=== PATIENT | female | born 1955 | race Caucasian/White ===

== ENCOUNTER → 2019-05-04 | Day surgery (SDC) | payer OTHER ==
[~2019-05-04] MED LIST: HYOSCYAMINE 0.125 MG TAB ONE; NEXIUM40 MG PO; NYQUIL PO; PROPOFOL IV EMULSION 10 MG/ML 50 ML VIAL ONE; SYNTHROID125 MCG PO; SYNTHROID200 MCG PO
--- OUTSIDE RECORDS SUMMARY | 2019-05-04 07:55 | XMS REPORT | Summary of Care ---
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); Prediabetes; Dyslipidemia; Goiter 01/27/2019 Office Visit [facility] [address] [place] [phone] Allergies Comments Active Allergy Reactions Severity Noted Date Iodine Hives 10/27/2013 Nitrofurantoin Hives 10/27/2013 Monohyd/M-Cryst "whelps and hives" Iodine And Iodide Other - See 10/27/2013 Containing Products comments Sulfa (Sulfonamide Hives 10/27/2013 Antibiotics) documented as of this encounter (statuses as of 01/27/2019) Medications End Date Status Medication Sig Dispensed Refills Start Date Active esomeprazole (NEXIUM) 40 Take 20 mg by 0 mg capsuleIndications: mouth daily. OTC Indications: OTC Active SACCHAROMYCES BOULARDII Take 1 tablet 0 (PROBIOTIC, S.BOULARDII, by mouth ORAL) daily. Active SYNTHROID 125 mcg tablet TAKE 1 TABLET 90 tablet 1 BY MOUTH 9 EVERY DAY IN THE EVENING Active meloxicam 7.5 mg tablet TAKE 1 TABLET 0 BY MOUTH 9 TWICE A DAY FOR INFLAMMATION Active HYDROcodone-acetaminophen TAKE 1 TABLET 0 5-325 mg tablet BY MOUTH 9 EVERY 6 HOURS NEEDED*INS ONLY ALLOW Active ezetimibe (ZETIA) 10 mg Take 1 tablet 30 tablet 4 tabletIndications: by mouth 9 Dyslipidemia daily. 01/27/2019 Discontinued aspirin 81 mg EC Take 1 tablet 90 tablet 1 tabletIndications: by mouth 7 Dyslipidemia daily. 01/27/2019 Discontinued VITAMIN D3 1,000 unit TAKE ONE 90 capsule 1 capsuleIndications: CAPSULE BY 8 Vitamin D insufficiency MOUTH EVERY DAY 01/27/2019 Discontinued pravastatin 20 mg tablet Take 1 tablet 90 tablet 1 by mouth at 8 bedtime. 01/27/2019 Discontinued methylPREDNISolone Take by 21 Each 0 (MEDROL, [place]WR[place],) 4 mg mouth 9 tabletsIndications: Cough SEE-INSTRUCTI ONS. follow package directions 01/27/2019 Discontinued LORazepam (ATIVAN) 0.5 mg Take 1 tablet 8 tablet 0 tabletIndications: by mouth 2 9 Intractable vomiting with (two) times nausea, unspecified daily as vomiting type, Anxiety needed for Anxiety. documented as of this encounter (statuses as of 01/27/2019) Active Problems Problem Noted Date Elevated blood pressure (not hypertension) 12/27/2015 Prediabetes 07/23/2014 Hypertriglyceridemia 07/23/2014 HLD (hyperlipidemia) 07/23/2014 Vitamin D deficiency 07/23/2014 Obesity 07/23/2014 Smoking addiction 07/23/2014 Hypothyroidism 04/02/2014 Metabolic syndrome X 04/02/2014 Thyroid disease 12/22/2013 documented as of this encounter (statuses as of 01/27/2019) Resolved Problems Problem Noted Date Resolved Date Essential hypertension 12/27/2015 12/27/2015 documented as of this encounter (statuses as of 01/27/2019) Social History Date Tobacco Use Types Packs/Day Years Used Quit: 08/11/2015 Former Smoker Cigarettes 1.5 40 Smokeless Tobacco: Never Used Drinks/Week oz/Week Comments Alcohol Use 0 Standard drinks or equivalent 0.0 No Sex Assigned at Date Recorded Not on file Industry Job Start Date Occupation Not on file Not on file Not on file Travel End Travel History Travel Start No recent travel history available. documented as of this encounter Last Filed Vital Signs Reading Time Taken Comments Vital Sign 128/79 01/27/2019 11:10 AM CDT Blood Pressure 94 01/27/2019 11:01 AM CDT Pulse 36.9 C (98.4 F) 01/27/2019 11:01 AM CDT Temperature 20 01/27/2019 11:01 AM CDT Respiratory Rate 98% 01/27/2019 11:01 AM CDT Oxygen Saturation - - Inhaled Oxygen Concentration 76.4 kg (168 lb 6.4 oz) 01/27/2019 11:01 AM CDT Weight 162.6 cm (5' 4") 01/27/2019 11:01 AM CDT Height 28.91 01/27/2019 11:01 AM CDT Body Mass Index documented in this encounter Progress Notes * Florina Enrique MA - 01/27/2019 11:00 AM CDT Cecy Maldonado is a 63 year old female Chief Complaint Patient presents with Follow-up prediabetes Thyroid Problem * Lynette Jarrett MD - 01/27/2019 11:00 AM CDT CC: Hypothyroidism, Pre-DM, DL HPI Patient is a 62 year old /White female here for Hypothyroidism, autoimm une, treated with Levothyroxine. Irasema's Hypothyroidism On LT4 at 125 mcg daily, takes pill 1 hour before breakfast No palpitations, tremors, fatigue, sweating No constipation/diarrhea No heat or cold intolerance No myalgias + dry skin Had enlarged thyroid with possible nodules on exam in the past, states she has h ad thyroid USG > 20 years ago. Patient declined US in past Denies hoarseness, pain or dysphagia. No FH of thyroid cancer + FH of hypothyroidism in mother, father, and brother Dyslipidemia: Not on statin, patient refused statin and zetia in past She tried once a statin and it caused her leg cramps REVIEW OF SYSTEMS Constitutional: No fever Eyes: No visual changes or eye pain. Ears, nose , throat, mouth: no ear pain, no nasal congestion, no sore throat, no oral lesions GI: No constipation or abdominal pain Neck: No neck swelling, dysphagia or odynophagia. Cardiovascular: No chest pain or palpitations. Respiratory: No SOB or wheezing. Skin: No rash or significant wounds. Neuro: No LE numbness or jimmy-oral numbness Endocrine: No polyuria or polydipsia. No symptoms of hyper/hypothyroidism esomeprazole (NEXIUM) 40 mg capsule Patient -- -- Doctor Unassigned, No N shyann Take 20 mg by mouth daily. Indications: OTC HYDROcodone-acetaminophen 5-325 mg tablet 12/29/18 -- Doctor Unassigned , [place] TAKE 1 TABLET BY MOUTH EVERY 6 HOURS NEEDED*INS ONLY ALLOW / meloxicam 7.5 mg tablet 12/15/18 -- Doctor Unassigned, [place] TAKE 1 TABLET BY MOUTH TWICE A DAY FOR INFLAMMATION SACCHAROMYCES BOULARDII (PROBIOTIC, S.BOULARDII, ORAL) -- -- Doctor Kay ssigned, [place] Take 1 tablet by mouth daily. SYNTHROID 125 mcg tablet 07/14/18 Medical History Past Medical History Date Comments Acid reflux [K21.9] Dyslipidemia [E78.5] Hypothyroidism [E03.9] Ptosis, right eyelid [H02.401] Medical History - Pertinent Negatives None Surgical History Past Surgical History Laterality Date Comments HYSTERECTOMY [[id number]] OPEN CARPAL TUNNEL RELEASE [[id number]] CHOLECYSTECTOMY [[id number]] Social History Category History Smoking Status Former Smoker; Quit date: 08/11/2015; 1.5 packs/day for 40 years ( 60.00 pk-yrs); Types: Cigarettes Smokeless Tobacco Status Never Used Alcohol Use No Drug Use No Sexually Active Not Asked ADL Not Asked Social Documentation None Family History Relation Status Problems (Age of Onset) - (Comment) Brother Thyroid Father Thyroid Maternal Grandmother Thyroid Mother Physical Exam Vitals: 01/27/19 1101 01/27/19 1110 BP: 136/77 128/79 BP Location: Left arm Patient Position: Sitting BP CUFF SIZE: Adult Medium Pulse: 94 Resp: 20 Temp: 36.9 C (98.4 F) TempSrc: Oral SpO2: 98% Weight: 168 lb 6.4 oz (76.4 kg) Height: 5' 4" (1.626 m) Estimated body mass index is 28.91 kg/m as calculated from the following: Height as of this encounter: 5' 4" (1.626 m). Weight as of this encounter: 168 lb 6.4 oz (76.4 kg). Constitutional : Oriented to person, place and time. Well nourished Eyes: no icterus, no pallor, no exophthalmus ENT: normal oral cavity, dentition normal Thyroid : no goiter, thyroid fullness on the right with possible palpable thyro id nodules, no palpable lymph nodes Heart : RRR, no murmurs Lungs: clear Abdomen : soft, nontender Integumentary : warm , no rash, no acanthosis nigricans Neurology : no postural tremors, intact pinprick and light touch sensation Psychiatric : pleasant patient, mood appropriate Diabetic foot exam : + pulses, no LLE, +2 ankle reflexes, no ulcers, no tinea p selena, ++ dry skin Labs: Results for CECY MALDONADO ( ) as of 01/26/2019 23:59 Ref. Range 12/22/2018 22:10 WBC x10^3 Latest Ref Range: 4.30 - 11.10 10*3/L 11.48 (H) RBC x10^6 Latest Ref Range: 3.93 - 5.25 10*6/L 3.83 (L) HGB Latest Ref Range: 11.6 - 15.0 g/dL 11.4 (L) HCT Latest Ref Range: 35.7 - 45.2 % 35.3 (L) MCV Latest Ref Range: 80.6 - 95.5 fL 92.2 MCH Latest Ref Range: 25.9 - 32.8 pg 29.8 MCHC Latest Ref Range: 31.6 - 35.1 g/dL 32.3 RDW-SD Latest Ref Range: 39.0 - 49.9 fL 43.8 RDW-CV Latest Ref Range: 12.0 - 15.5 % 13.2 PLT x10^3 Latest Ref Range: 166 - 358 10*3/L 405 (H) MPV Latest Ref Range: 9.5 - 12.9 fL 11.5 NRBC /100 WBC Latest Ref Range: 0.0 - 10.0 /100 WBCs 0.0 NRBC x10^3 Latest Units: 10*3/L <0.01 GRAN MAT (NEUT) % Latest Units: % 60.1 IMM GRAN % Latest Units: % 0.30 LYMPH% Latest Units: % 32.4 MONO % Latest Units: % 5.5 EOS % Latest Units: % 1.3 BASO % Latest Units: % 0.4 GRAN MAT x10^3(ANC) Latest Ref Range: 1.88 - 7.09 10*3/uL 6.89 IMM GRAN x10^3 Latest Ref Range: 0.00 - 0.06 10*3/uL 0.04 LYMPH x10^3 Latest Ref Range: 1.32 - 3.29 10*3/uL 3.72 (H) MONO x10^3 Latest Ref Range: 0.33 - 0.92 10*3/uL 0.63 EOS x10^3 Latest Ref Range: 0.03 - 0.39 10*3/uL 0.15 BASO x10^3 Latest Ref Range: 0.01 - 0.07 10*3/uL 0.05 NA Latest Ref Range: 135 - 145 mmol/L 142 K Latest Ref Range: 3.5 - 5.0 mmol/L 4.2 CL Latest Ref Range: 98 - 108 mmol/L 107 CO2 TOTAL Latest Ref Range: 23 - 31 mmol/L 23 AGAP Latest Ref Range: 2 - 16 12 BUN Latest Ref Range: 7 - 23 mg/dL 15 GLUCOSE Latest Ref Range: 70 - 110 mg/dL 105 CREATININE Latest Ref Range: 0.50 - 1.04 mg/dL 0.64 eGFR CALCULATION (non ) Latest Units: mL/min/1.73m2 94.0 eGFR CALCULATION () Latest Units: mL/min/1.73m2 114.0 TOTAL BILI Latest Ref Range: 0.1 - 1.1 mg/dL 0.6 BILI UNCON Latest Ref Range: 0.1 - 1.1 mg/dL 0.4 BILI CONJ Latest Ref Range: 0.0 - 0.3 mg/dL 0.0 CALCIUM Latest Ref Range: 8.6 - 10.6 mg/dL 9.8 T PROTEIN Latest Ref Range: 6.3 - 8.2 g/dL 7.2 ALBUMIN Latest Ref Range: 3.5 - 5.0 g/dL 4.0 TROPONIN I Latest Ref Range: <=0.034 ng/mL 0.002 LIPASE Latest Ref Range: 0 - 220 U/L 65 ALK PHOS Latest Ref Range: 34 - 122 U/L 107 ALT(SGPT) Latest Ref Range: 9 - 51 U/L 37 AST(SGOT) Latest Ref Range: 13 - 40 U/L 30 Results for CECY MALDONADO ( ) as of 01/26/2019 23:59 Ref. Range 12/30/2017 09:44 CHOL Latest Ref Range: 120 - 200 mg/dL 249 (H) TRIG Latest Ref Range: 30 - 170 mg/dL 292 (H) HDL CHOL Latest Ref Range: >50 mg/dL 50 (L) HDLC RATIO Latest Ref Range: <=4.5 5.0 (H) LDL CHOL Latest Ref Range: <=160 mg/dL 141 VLDL Latest Ref Range: 5 - 60 mg/dL 58 Results for CECY AMLDONADO ( ) as of 01/26/2019 23:59 Ref. Range 06/13/2015 15:25 12/25/2015 09:00 03/04/2017 14:36 03/05/2017 09:52 2017 09:44 12/05/2018 13:58 HGB A1C Latest Ref Range: 4.0 - 6.0 % NGSP 5.6 5.6 5.9 5.9 Results for CECY MALDONADO ( ) as of 01/26/2019 23:59 Ref. Range 06/13/2015 15:25 03/04/2017 14:36 VIT D 25OH Latest Ref Range: 25 - 80 ng/mL 28 33 Results for CECY MALDONADO ( ) as of 01/27/2019 11:59 Ref. Range 06/13/2015 15:25 12/25/2015 09:00 03/04/2017 14:36 12/30/2017 09:44 TSH Latest Ref Range: 0.45 - 4.70 mIU/L 0.52 1.89 0.80 1.96 Results for CECY MALDONADO ( ) as of 01/27/2019 11:59 Ref. Range 12/19/2013 09:35 06/13/2015 15:25 12/25/2015 09:00 03/04/2017 14:36 FREE T4 Latest Ref Range: 0.78 - 2.20 ng/dL: 2.16 1.75 1.05 1.46 A/P : 1. 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 Last TFTs in 2018 were within normal limits - Keep same for now - Repeat TSH and FT4 today - Will adjust dose based on levels 2. Prediabetes : controlled on TLC, Hba1c is < 5.7 % for the past 3 years - Keep same 3. Dyslipidemia : refusing statins( had hx of muscle cramps on it in the past). - Repeat lipid profile today - Start Zetia 10 mg daily 4. Goiter : prominent right thyroid lobe, possible nodules on exam. 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 Expected: 01/27/2019, Expires: 03/25/2019 LIPID PANEL (63555)(TOTAL LAB Routine Dyslipidemia CHOLESTEROL, TRIGLYCERIDES, HDL) Health Maintenance Due Date Last Done Comments HEPATITIS C (HCV) SCREEN 1956 DTaP,Tdap,and Td Vaccines 12/14/1975 (1 - Tdap) PAP SMEAR 1977 MAMMOGRAM 1996 COLONOSCOPY 2006 Zoster Recombinant 2006 Vaccine (SHINGRIX) (1 of 2) LUNG CANCER SCREEN: 12/14/2011 Recommended for age 55-80 with 30 + pack year history INFLUENZA VACCINE (#1) 2019 PNEUMOCOCCAL 0-64 YEARS Aged Out No longer eligible based COMBINED SERIES on patient's age to complete this topic documented as of this encounter Procedures Comments Procedure Name Priority Date/Time Associated Diagnosis POCT HEMOGLOBIN A1C TEST Routine 01/27/2019 documented in this encounter Results * POCT HEMOGLOBIN A1C TEST (01/27/2019) POCT HBA1C 5.6 4 - 6 % Specimen Blood - CAPILLARY documented in this encounter Visit Diagnoses Diagnosis 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
--- OUTSIDE RECORDS SUMMARY | 2019-05-04 07:55 | XMS REPORT | Summary of Care ---
Author Author [facility] - Health Organization [facility] - Health Address Unknown Phone Unavailable Care Team Providers Care Operations Support Specialist Name Role Phone Pcp, Patient Does Not Have A PCP Reason for Visit * Reason Comments Abdominal Pain Nausea Vomiting Diarrhea Encounter Details Care Team Description Date Type Department Unknown, Attending Nurse, Anup Urgent Abdominal pain with vomiting (Primary Dx) 12/22/2018 Nurse Visit [facility] [address] [place] [phone] Allergies Comments Active Allergy Reactions Severity Noted Date Iodine Hives 10/27/2013 Nitrofurantoin Hives 10/27/2013 Monohyd/M-Cryst "whelps and hives" Iodine And Iodide Other - See 10/27/2013 Containing Products comments Sulfa (Sulfonamide Hives 10/27/2013 Antibiotics) documented as of this encounter (statuses as of 12/22/2018) Medications End Date Status Medication Sig Dispensed Refills Start Date Active esomeprazole (NEXIUM) 40 Take 20 mg by 0 mg capsuleIndications: mouth daily. OTC Indications: OTC Active SACCHAROMYCES BOULARDII Take 1 tablet 0 (PROBIOTIC, S.BOULARDII, by mouth ORAL) daily. Active aspirin 81 mg EC Take 1 tablet 90 tablet 1 tabletIndications: by mouth 7 Dyslipidemia daily. Active VITAMIN D3 1,000 unit TAKE ONE 90 capsule 1 capsuleIndications: CAPSULE BY 8 Vitamin D insufficiency MOUTH EVERY DAY Active pravastatin 20 mg tablet Take 1 tablet 90 tablet 1 by mouth at 8 bedtime. Active SYNTHROID 125 mcg tablet TAKE 1 TABLET 90 tablet 1 BY MOUTH 9 EVERY DAY IN THE EVENING Active methylPREDNISolone Take by 21 Each 0 (MEDROL, LAWRENCE,) 4 mg mouth 9 tabletsIndications: Cough SEE-INSTRUCTI ONS. follow package directions documented as of this encounter (statuses as of 12/22/2018) Active Problems Problem Noted Date Elevated blood pressure (not hypertension) 12/27/2015 Prediabetes 07/23/2014 Hypertriglyceridemia 07/23/2014 HLD (hyperlipidemia) 07/23/2014 Vitamin D deficiency 07/23/2014 Obesity 07/23/2014 Smoking addiction 07/23/2014 Hypothyroidism 04/02/2014 Metabolic syndrome X 04/02/2014 Thyroid disease 12/22/2013 documented as of this encounter (statuses as of 12/22/2018) Resolved Problems Problem Noted Date Resolved Date Essential hypertension 12/27/2015 12/27/2015 documented as of this encounter (statuses as of 12/22/2018) Social History Date Tobacco Use Types Packs/Day [...] Signs Reading Time Taken Comments Vital Sign 131/84 12/22/2018 7:48 PM CDT Blood Pressure 107 12/22/2018 7:48 PM CDT Pulse 36.6 C (97.9 F) 12/22/2018 7:48 PM CDT Temperature 22 12/22/2018 7:48 PM CDT Respiratory Rate 98% 12/22/2018 7:48 PM CDT Oxygen Saturation - - Inhaled Oxygen Concentration 75.7 kg (166 lb 12.8 oz) 12/22/2018 7:48 PM CDT Weight 162.6 cm (5' 4") 12/22/2018 7:48 PM CDT Height 28.63 12/22/2018 7:48 PM CDT Body Mass Index documented in this encounter Progress Notes * Angel Lozada RN - 12/22/2018 7:45 PM CDT complaining of abdominal pain. Patient reports that she has been having LUQ/LLQ pain for the past 3-4 days with N/V/D. She said that it is getting unbearable an d said that she was able to get herself some nausea medication that would make h er fall asleep but when she woke up she would start vomiting again. She states t hat she has been unable to take her medications. Patient reports history of hypo thyroidism, Prediabetes, HLD, and elevated BP. Patient AAOx4, ambulatory with a walker, eupneic, skin pink/warm/dry, appears ac utely ill and in distress. Patient encouraged to seek emergency medical treatment at local emergency room f or abdominal pain and N/V/D. Case discussed with Elham Pritchard NP who agrees with t reatment plan recommendations. Patient verbalizes understanding and states she w ill be seen at [facility]. Patient states that her will drive her ther e in their own personal vehicle. Patient leaves urgent care @1945 en route to [place] AAOx4, ambulatory wit h a walker, in acute distress. documented in this encounter Plan of Treatment Health Maintenance Due Date Last Done Comments HEPATITIS C (HCV) SCREEN 1956 DTaP,Tdap,and Td Vaccines 12/14/1975 (1 - Tdap) PAP SMEAR 1977 MAMMOGRAM 1996 COLONOSCOPY 2006 Zoster Recombinant 2006 Vaccine (SHINGRIX) (1 of 2) LUNG CANCER SCREEN: 12/14/2011 Recommended for age 55-80 with 30 + pack year history INFLUENZA VACCINE 01/29/2019 PNEUMOCOCCAL 0-64 YEARS Aged Out No longer eligible based COMBINED SERIES on patient's age to complete this topic documented as of this encounter Results Not on filedocumented in this encounter Visit Diagnoses Diagnosis Abdominal pain with vomiting - Primary documented in this encounter Insurance Type Payer Benefit Subscriber ID Effective Phone Address Plan / Dates Group O [facility] [id number] 2018-P resent documented as of this encounter
--- OUTSIDE RECORDS SUMMARY | 2019-05-04 07:55 | XMS REPORT | Summary of Care ---
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); Prediabetes; Dyslipidemia; Goiter 01/27/2019 Office Visit [facility] [address] [place] [phone] Allergies Comments Active Allergy Reactions Severity Noted [...] mg tablet 12/29/18 -- Doctor Unassigned , [place] TAKE 1 TABLET BY MOUTH EVERY 6 HOURS NEEDED*INS ONLY ALLOW / meloxicam 7.5 mg tablet 12/15/18 -- Doctor Unassigned, [place] TAKE 1 TABLET BY MOUTH TWICE A DAY FOR INFLAMMATION SACCHAROMYCES BOULARDII (PROBIOTIC, S.BOULARDII, ORAL) -- -- Doctor Kay ssigned, [place] Take 1 tablet by mouth daily. SYNTHROID 125 mcg tablet 07/14/18 Medical History Past Medical History Date Comments Acid reflux [K21.9] Dyslipidemia [E78.5] Hypothyroidism [E03.9] Ptosis, right eyelid [H02.401] Medical History - Pertinent Negatives None Surgical History Past Surgical History Laterality Date Comments HYSTERECTOMY [[id number]] OPEN CARPAL TUNNEL RELEASE [[id number]] CHOLECYSTECTOMY [[id number]] Social History Category History Smoking Status Former [...] - 60 mg/dL 58 Results for CECY MALDONADO ( ) as [...] thyroiditis Expected: 01/27/2019, Expires: 03/25/2019 LIPID PANEL (52786)(TOTAL LAB Routine Dyslipidemia CHOLESTEROL, TRIGLYCERIDES, HDL) Health [...] Address Plan / Dates Group O AENA [facility] [id number] 2018-P neto documented as of this encounter
--- OUTSIDE RECORDS SUMMARY | 2019-05-04 07:55 | XMS REPORT | Summary of Care ---
Author Author [facility] - Health Organization [facility] - Health Address Unknown Phone Unavailable Care Team Providers Care Spinner Cap Frame Name Role Phone Pcp, Patient Does Not Have A PCP Reason for Referral * Radiology Services (STAT) Referred By Contact Referred To Contact Status Reason Specialty Diagnoses / Procedures Finn Lang MD [address] [address] New Request Diagnostic Diagnoses Radiology Intractable vomiting with nausea, unspecified vomiting type P rocedures XR ABDOMEN ACUTE SERIES * Radiology Services (STAT) Referred By Contact Referred To Contact Status Reason Specialty Diagnoses / Procedures Finn Lang MD [address] [address] New Request Diagnostic Diagnoses Radiology Intractable vomiting with nausea, unspecified vomiting type P rocedures XR ABDOMEN ACUTE SERIES Reason for Visit * Reason Comments Vomiting * Auth/Cert Referred By Contact Referred To Contact Status Reason Specialty Diagnoses / Procedures [facility] Emergency Dept [address] [place] [id number] Emergency Medicine Encounter Details Care Team Description Date Type Department Finn Lang MD [address] [address] Intractable vomiting with nausea, unspecified vomiting type (Primary Dx); Anxiety 12/22/2018 Emergency [facility]-Emergency Department - [address] [place] [address] 12/23/2018 [place] [address] Allergies Comments Active Allergy Reactions Severity Noted Date Iodine Hives 10/27/2013 Nitrofurantoin Hives 10/27/2013 Monohyd/M-Cryst "whelps and hives" Iodine And Iodide Other - See 10/27/2013 Containing Products comments Sulfa (Sulfonamide Hives 10/27/2013 Antibiotics) documented as of this encounter (statuses as of 12/23/2018) Medications End Date Status Medication Sig Dispensed [...] tabletsIndications: Cough SEE-INSTRUCTI ONS. follow package directions Active LORazepam (ATIVAN) 0.5 mg Take 1 tablet 8 tablet 0 tabletIndications: by mouth 2 9 Intractable vomiting with (two) times nausea, unspecified daily as vomiting type, Anxiety needed for Anxiety. documented as of this encounter (statuses as of 12/23/2018) Active Problems Problem Noted Date Elevated blood pressure (not hypertension) 12/27/2015 Prediabetes 07/23/2014 Hypertriglyceridemia 07/23/2014 HLD (hyperlipidemia) 07/23/2014 Vitamin D deficiency 07/23/2014 Obesity 07/23/2014 Smoking addiction 07/23/2014 Hypothyroidism 04/02/2014 Metabolic syndrome X 04/02/2014 Thyroid disease 12/22/2013 documented as of this encounter (statuses as of 12/23/2018) Resolved Problems Problem Noted Date Resolved Date Essential hypertension 12/27/2015 12/27/2015 documented as of this encounter (statuses as of 12/23/2018) Social History Date Tobacco Use Types Packs/Day [...] Signs Reading Time Taken Comments Vital Sign 110/58 12/23/2018 12:17 AM CDT Blood Pressure 92 12/23/2018 12:17 AM CDT Pulse 37 C (98.6 F) 12/23/2018 12:17 AM CDT Temperature 18 12/23/2018 12:17 AM CDT Respiratory Rate 97% 12/23/2018 12:17 AM CDT Oxygen Saturation - - Inhaled Oxygen Concentration 78 kg (172 lb) 12/22/2018 8:07 PM CDT Weight - - Height 29.52 12/22/2018 7:48 PM CDT Body Mass Index documented in this encounter Discharge Instructions * Instructions* Finn Lang MD - 12/23/2018 DIAGNOSIS Diagnoses that have been ruled out: None Diagnoses that are still under consideration: None Final diagnoses: Intractable vomiting with nausea, unspecified vomiting type NO LIFE-THREATENING FINDINGS ON TODAY'S EXAM. PROCEDURES IN THE ER TODAY: Orders Placed This Encounter Procedures XR ABDOMEN ACUTE SERIES CBC WITH DIFF BASIC METABOLIC PANEL (NA, K, CL, CO2, GLUCOSE, BUN, CREATININE, CA) HEPATIC FUNCTION PANEL (67622) (ALB,T.PRO,BILI T,BU/BC,ALT,AST,ALK PHOS) LIPASE CBC WITH DIFFERENTIAL TROPONIN I MEDICATIONS ADMINISTERED IN THE ER TODAY: Orders Placed This Encounter Medications NaCl 0.9% (NS) bolus infusion 500 mL ondansetron (ZOFRAN (PF)) injection 4 mg diazePAM (VALIUM) tablet 5 mg YOUR PRESCRIPTIONS AND [id number] MEDICATION RECOMMENDATIONS: Ativan SPECIAL CARE INSTRUCTIONS: Follow up with PCP FOLLOW-UP RECOMMENDATIONS: RECOMMEND FOLLOW-UP WITH A PRIMARY CARE PROVIDER OR SPECIALIST IN 2-5 DAYS, ADAMA CIALLY IF NO IMPROVEMENT IN SYMPTOMS. TO FOLLOW-UP WITHIN THE [facility], TRY THESE OPTIONS (CLINIC APPOIN TMENTS AVAILABLE ON XTRG-MD-NADR BASIS): 1. SCHEDULE AN APPOINTMENT ONLINE AT [email or web address] 2. OR CALL THE [facility] AT OR 3. OR CALL YOUR [facility] PHYSICIAN'S OFFICE DIRECTLY IF YOU ARE ALREADY AN ESTABLISH ED [facility] PATIENT. OR, YOU MAY FOLLOW-UP WITH A PROVIDER OF YOUR CHOICE, SUCH : 1. A PHYSICIAN OF YOUR CHOICE 2. [facility], . LOCATIONS IN [facility] 3. [facility], [address] [place], [place]; [phone] RETURN TO ER FOR WORSENING OF SYMPTOMS. * Attachments The following attachments cannot be sent through Care Everywhere.* Vomiting (Adult) (Kiswahili) * Anxiety Reaction (Kiswahili) documented in this encounter Plan of Treatment [...] Comments Procedure Name Priority Date/Time Associated Diagnosis CBC WITH DIFFERENTIAL STAT 12/22/2018 Intractable vomiting with 10:10 PM CDT nausea, unspecified vomiting type CBC WITH DIFF STAT 12/22/2018 Intractable vomiting with 10:10 PM CDT nausea, unspecified vomiting type BASIC METABOLIC PANEL STAT 12/22/2018 Intractable vomiting with (NA, K, CL, CO2, GLUCOSE, 10:10 PM CDT nausea, unspecified BUN, CREATININE, CA) vomiting type HEPATIC FUNCTION PANEL STAT 12/22/2018 Intractable vomiting with (38963) (ALB,T.PRO,BILI 10:10 PM CDT nausea, unspecified T,BU/BC,ALT,AST,ALK PHOS) vomiting type TROPONIN I STAT 12/22/2018 Intractable vomiting with 10:10 PM CDT nausea, unspecified vomiting type LIPASE STAT 12/22/2018 Intractable vomiting with 10:10 PM CDT nausea, unspecified vomiting type XR ABDOMEN ACUTE SERIES STAT 12/22/2018 Intractable vomiting with 9:41 PM CDT nausea, unspecified vomiting type CONSENT/REFUSAL FOR Routine 12/22/2018 DIAGNOSIS AND TREATMENT 8:03 PM CDT documented in this encounter Results * TROPONIN I (12/22/2018 10:10 PM CDT) TROPONIN I 0.002 <=0.034 ng/mL [facility] Specimen Blood - VENOUS Narrative Performed At Equal or Less than 0.034 ng/ml---Normal [facility] Note: Cardiac troponin begins to rise 3-4 hours after the onset of ischemia. [facility] Repeat in 4-6 hours if the sample was drawn within 3-4 hours of the onset of the [place] symptom and found normal. Between 0.035 and 0.120 ng/mL--- Borderline. Questionable myocardial injury or necrosis Note: Serial measurement may be necessary to confirm or exclude the diagnosis of myocardial injury or necrosis; Clinical correlation (symptoms, EKGs, imaging studies, and others) required; Repeat in 4-6 hours if clinically indicated. Equal or Higher than 0.121 ng/mL---Abnormal. Myocardial Injury or Necrosis Likely Biotin has been reported to cause a negative bias, interpret results relative to patient's use of biotin. Performing Organization Address City/State/Zipcode Phone Number [facility] CLIA: [id number], [address] [place] [address] [facility] * CBC WITH DIFFERENTIAL (12/22/2018 10:10 PM CDT) WBC 11.48 (H) 4.30 - 11.10 [facility] 10*3/L [facility] RBC 3.83 (L) 3.93 - 5.25 10*6/L [facility] HGB 11.4 (L) 11.6 - 15.0 g/dL [facility] HCT 35.3 (L) 35.7 - 45.2 % [facility] MCV 92.2 80.6 - 95.5 fL [facility] MCH 29.8 25.9 - 32.8 pg [facility] MCHC 32.3 31.6 - 35.1 g/dL [facility] RDW-SD 43.8 39.0 - 49.9 fL [facility] RDW-CV 13.2 12.0 - 15.5 % [facility] PLT 405 (H) 166 - 358 10*3/L [facility] MPV 11.5 9.5 - 12.9 fL [facility] NRBC/100 WBC 0.0 0.0 - 10.0 /100 WBCs [facility] NRBC x10^3 <0.01 10*3/L [facility] GRAN MAT (NEUT) 60.1 % [facility] IMM GRAN % 0.30 % [facility] LYMPH % 32.4 % [facility] MONO % 5.5 % [facility] EOS % 1.3 % [facility] BASO % 0.4 % [facility] GRAN MAT 6.89 1.88 - 7.09 10*3/uL [facility] x10^3(ANC) [facility] IMM GRAN x10^3 0.04 0.00 - 0.06 10*3/uL [facility] LYMPH x10^3 3.72 (H) 1.32 - 3.29 10*3/uL [facility] MONO x10^3 0.63 0.33 - 0.92 10*3/uL [facility] EOS x10^3 0.15 0.03 - 0.39 10*3/uL [facility] BASO x10^3 0.05 0.01 - 0.07 10*3/uL [facility] Specimen Blood - VENOUS Performing Organization Address City/[facility]/Zipcode Phone Number [facility] CLIA: [id number], [address] [place] [id number] [facility] * LIPASE (12/22/2018 10:10 PM CDT) LIPASE 65 0 - 220 U/L [facility] Specimen Blood - VENOUS Performing Organization Address City/[facility] [email or web address] Phone Number [facility] CLIA: [id number], [address] [place] [address] [facility] * HEPATIC FUNCTION PANEL (02569) (ALB,T.PRO,BILI T,BU/BC,ALT,AST,ALK PHOS) (12/22/2018 10:10 PM CDT) TOTAL BILI 0.6 0.1 - 1.1 mg/dL [facility] BILI UNCON 0.4 0.1 - 1.1 mg/dL [facility] BILI CONJ 0.0 0.0 - 0.3 mg/dL [facility] T PROTEIN 7.2 6.3 - 8.2 g/dL [facility] ALBUMIN 4.0 3.5 - 5.0 g/dL [facility] ALK PHOS 107 34 - 122 U/L [facility] ALT(SGPT) 37 9 - 51 U/L [facility] AST(SGOT) 30 13 - 40 U/L [facility] Specimen Blood - VENOUS Performing Organization Address City/[facility]/Zipcode Phone Number [facility] CLIA: [id number], [address] [place] [phone] [facility] * BASIC METABOLIC PANEL (NA, K, CL, CO2, GLUCOSE, BUN, CREATININE, CA) (12/22/2018 10:10 PM CDT) NA 142 135 - 145 mmol/L [facility] K 4.2 3.5 - 5.0 mmol/L [facility] CL 107 98 - 108 mmol/L [facility] CO2 TOTAL 23 23 - 31 mmol/L [facility] AGAP 12 2 - 16 [facility] BUN 15 7 - 23 mg/dL [facility] GLUCOSE 105 70 - 110 mg/dL [facility] CREATININE 0.64 0.50 - 1.04 mg/dL [facility] CALCIUM 9.8 8.6 - 10.6 mg/dL [facility] eGFR 94.0 mL/min/1.73m2 [facility] Calculation [facility] (Non-[facility] [place]) eGFR 114.0 mL/min/1.73m2 [facility] Calculation [facility] ([facility] [place]) Specimen Blood - VENOUS Narrative Performed At [facility] [place] [facility] [place] Fil[place] Rate (GFR) and Staging of Kidney Disease* [facility] + + + [facility] | GFR (mL/min/1.73 m2)| With Kidney Damage|Without Kidney Damage CAMPUS + + + + |>90|Stage one| Normal + + + + |60-89|Stage two| Decreased GFR + + + + |30-59|Stage three| Stage three + + + + |15-29|Stage four | Stage four + + + + |<15 (or dialysis)|Stage five | Stage five + + + + *Each stage assumes the associated GFR level has been in effect for at least three months.Stages 1 to 5, with or without kidney disease, indicate chronic kidney disease. Notes: Determination of stages one and two (with eGFR >59mL/min/1.73 m2) requires estimation of kidney damage for at least three months as defined by structural or functional abnormalities of the kidney, manifested by either: Pathological abnormalities or Markers of kidney damage (including abnormalities in the composition of the blood or urine or abnormalities in imaging tests). Performing Organization Address City/State/Zipcode Phone Number [facility] CLIA: [id number], [address] [place] [address] [facility] * XR ABDOMEN ACUTE SERIES (12/22/2018 9:41 PM CDT) Specimen Narrative Performed At XR ABDOMEN ACUTE SERIES PACS/VR/DOSE Comparison: None available History: abdominal pain Findings: The lungs are clear with no focal consolidation. No pleural effusion or pneumothorax is present. The heart is normal in size. The bowel gas pattern is nonobstructive. No evidence of free intra-abdominal air is present. Surgical bertin are noted in the right upper quadrant. Surgical screws are noted in the lumbar spine and the pelvis. No acute osseous abnormality. Changes of left total hip replacement are partially visualized. Charlotte Rosales MD., have reviewed this study and agree with the above report. Procedure Note [facility], Radiant Results Inft User - 12/22/2018 10:06 PM CDT XR ABDOMEN ACUTE SERIES Comparison: None available History: abdominal pain Findings: The lungs are clear with no focal consolidation. No pleural effusion or pneumothorax is present. The heart is normal in size. The bowel gas pattern is nonobstructive. No evidence of free intra-abdominal air is present. Surgical bertin are noted in the right upper quadrant. Surgical screws are noted in the lumbar spine and the pelvis. No acute osseous abnormality. Changes of left total hip replacement are partially visualized. Vince Rosales MD., have reviewed this study and agree with the above report. Performing Organization Address City/State/Zipcode Phone Number PACS/VR/DOSE documented in this encounter Visit Diagnoses Diagnosis Intractable vomiting with nausea, unspecified vomiting type - Primary Anxiety Anxiety state, unspecified documented in this encounter Administered Medications Action Date Dose Rate Site Medication Order MAR Action 12/22/2018 11:50 PM CDT 5 mg diazePAM (VALIUM) tablet 5 mg Given 5 mg, Oral, ONCE, 1 dose, 12/23/18 at 0030, CASSIUS 12/22/2018 10:10 PM CDT 500 mL 999 mL/hr NaCl 0.9% (NS) bolus infusion 500 mL New Bag at 999 mL/hr, 500 mL, IV Infusion, ONCE, 1 dose, Rea 12/22/18 at 2215, STAT 12/22/2018 10:10 PM CDT 4 mg ondansetron (ZOFRAN (PF)) injection 4 mg Given 4 mg, Slow IV Push, ONCE, 1 dose, Rea 12/22/18 at 2215, CASSIUS documented in this encounter Insurance Type Payer Benefit Subscriber ID Effective Phone Address Plan / Dates Group [id number] resent documented as of this encounter
--- OUTSIDE RECORDS SUMMARY | 2019-05-04 07:55 | XMS REPORT ---
Author Author [facility] Address Unknown Phone Unavailable Care Team Providers Care Records Section Supervisor Name Role Phone Unavailable Unavailable Payers Payer Name Policy Type Policy Number Effective Date Expiration Date Problems This patient has no known problems. Allergies, Adverse Reactions, Alerts Allergy Name Allergy Type Status Severity Reaction(s) Onset Date Inactive Date Treating Clinician Comments Iodinated Contrast- Oral and IV Dye DA Active [place] 2018-11-14 00:00:00 Sulfa (Sulfonamide Antibiotics) DA Active [place] 2018-11-14 00:00:00 codeine DA Active [place] 2018-11-14 00:00:00 nitrofurantoin DA Active [place] 2018-11-14 00:00:00 tramadol DA Active [place] 2018-11-14 00:00:00 Sulfa (Sulfonamide Antibiotics) DA Active [place] 2009-05-31 00:00:00 Iodinated Contrast- Oral and IV Dye DA Active U 2008-11-17 00:00:00 codeine DA Active U 2008-11-17 00:00:00 Medications This patient has no known medications. Results Test Description Test Time Test Comments Text Results Atomic Results Result Comments - XR PELVIS 1/2 VIEWS 2018-12-15 12:44:00 Patient Name: CECY SILVA Unit No: [id number] EXAMS: CPT CODE: [id number] XR PELVIS 1/2 VIEWS 05800 AP VIEW OF THE PELVIS. COMMENT: In progress total left hip arthroplasty. AP view the pelvis COMMENT: COMPARISON: No prior exams available. Completed total left hip arthroplasty. Prosthesis appears to be in good position. No evidence of periprosthetic fracture. at 1244 Reported and signed by: Kenan Morgan MD CC: Edie Simmons MD Technologist: Nehal Coronado,RT(R). Transcribed D/ (4992) JohanaG [facility] NAME: CECY SILVA [address] [place] [address] PHYS: Edie Landon MD : 1955 AGE: 63 SEX: F [place] [address] LOC: Y.508 A PHONE #: [phone] EXAM DATE: 12/14/2018 STATUS: ADM IN FAX #: [phone] RAD #: D/C DT PAGE 1 Signed Report Patient Name: CECY SILVABANNER Unit No: [id number] EXAMS: CPT CODE: [id number] XR PELVIS 1/2 VIEWS 33858 <Continued> Orig Print D/T: S: 12/15/2018 (9830) [facility] NAME: CECY SILVA [address] PHYS: Edie Landon MD : 1955 AGE: 63 SEX: F [place] [address] LOC: Y.508 A PHONE #: [phone] EXAM DATE: 12/14/2018 STATUS: ADM IN FAX #: [phone] RAD #: D/C DT PAGE 2 Signed Report - XR PELVIS 1/2 VIEWS 2018-12-15 12:44:00 Patient Name: CECY SILVABANNER Unit No: [id number] EXAMS: CPT CODE: [id number] XR PELVIS 1/2 VIEWS 95898 AP VIEW OF THE PELVIS. COMMENT: In progress total left hip arthroplasty. AP view the pelvis COMMENT: COMPARISON: No prior exams available. Completed total left hip arthroplasty. Prosthesis appears to be in good position. No evidence of periprosthetic fracture. at 1244 Reported and signed by: Kenan Morgan MD CC: Edie Simmons MD Technologist: Nehal Coronado,RT(R). Transcribed D/ (8968) LaiGVG [facility] NAME: CECY SILVA [address] [facility] PHYS: Edie Landon MD : 1955 AGE: 63 SEX: F [place], [place] [address] LOC: Y.508 A PHONE #: [phone] EXAM DATE: 12/14/2018 STATUS: ADM IN FAX #: [phone] RAD #: D/C DT PAGE 1 Signed Report Patient Name: CECY SILVA Unit No: [id number] EXAMS: CPT CODE: [id number] XR PELVIS 1/2 VIEWS 53213 <Continued> Orig Print D/T: S: 12/15/2018 (8387) [facility] NAME: CECY SILVA [address] [place] [address] PHYS: Edie Landon MD : 1955 AGE: 63 SEX: F [place], [place] [address] LOC: Y.508 A PHONE #: [phone] EXAM DATE: 12/14/2018 STATUS: ADM IN FAX #: [phone] RAD #: D/C DT PAGE 2 Signed Report BASIC METABOLIC PANEL 2018-12-15 06:19:00 SODIUM (test code=NA) 141 mmol/L 136-145 POTASSIUM (test code=K) 5.1 mmol/L 3.5-5.1 CHLORIDE (test code=CL) 104.0 mmol/L 98-107 CARBON DIOXIDE (test code=CO2) 24.2 mmol/L 21-32 GLUCOSE (test code=GLU) 175 mg/dL 70-110 BLOOD UREA NITROGEN (test code=BUN) 16 mg/dL 7-18 GLOMERULAR FILTRATION RATE (test code=GFR) 70.6 >60 Unit of measure: mL/min/1.73 [id number] Range:Healthy Adults >90 mL/min/1.73 m2 For Chronic Kidney Disease: Stage II Mild Decrease in GFR 60-90 Stage III Moderate Decrease in GFR 30-59 Stage IV Severe Decrease in GFR 15-29 Stage V Kidney Failure <15 CREATININE (test code=CREAT) 0.82 mg/dL 0.55-1.30 CALCIUM (test code=CA) 8.6 mg/dL 8.2-10.1 HGB [id number] 05:39:00* Test Item Value Reference Range Comments HEMOGLOBIN (test code=HGB) 11.5 g/dL 12-16 HEMATOCRIT (test code=HCT) 36.4 % 37-47 GLYCOSYLATED HEMOGLOBIN (HA1C)2018-11-14 22:19:00* Test Item Value Reference Range Comments GLYCOSYLATED HEMOGLOBIN (HA1C) (test code=GLYHGB) 5.6 % 4.8-5.9 Any condition that shortens erythocyte survival or decreasesmean erythrocyte age (e.g., recovery from acute blood loss,hemolytic anemia) will falsely lower HGBA1c resultsregardless of the method used. HGBA1c results from patientswith HbSS, HbCC, and HbSc must be interpreted with cautiongiven the pathological processes, including anemia,increased red cell turnover, transfusion requirements, thatadve rsely impact HGBA1c as a marker of long-term glycemiccontrol. Alternative forms of testing such as fructosamineshould be considered for these patients. GLYCOSYLATED HEMOGLOBIN (HA1C)2018-11-14 22:19:00* Test Item Value Reference Range Comments GLYCOSYLATED HEMOGLOBIN (HA1C) (test code=GLYHGB) 5.6 % 4.8-5.9 Any condition that shortens erythocyte survival or decreasesmean erythrocyte age (e.g., recovery from acute blood loss,hemolytic anemai) will falsely lower HGBA1c resultsregardless of the method used. HGBA1c results frompatients with HbSS, HbCC and HbSc must be interpreted withcaution given the pathological processes, including anemia,increased red cell turnover, transfusion requirements, thatadversely impact HGBA1c as a marker of long-term glycemiccontrol. Alternative forms of testing such as fructosamineshould be considered for these patients.Any condition that shortens erythocyte survival or decreasesmean erythrocyte age (e.g., recovery from acute blood loss,hemolytic anemia) will falsely lower HGBA1c resultsregardless of the method used. HGBA1c results from patientswith HbSS, HbCC, and HbSc must be interpreted with cautiongiven the pathological processes, including anemia,increased red cell turnover, transfusion requirements, thatadversely impact HGBA1c as a marker of long-term glycemiccontrol. Alternative forms of testing such as fructosamineshould be considered for these patients.DONE AT: [facility] [address], [place] [address] COMPREHENSIVE METABOLIC [id number] 17:08:00* Test Item Value Reference Range Comments SODIUM (test code=NA) 144 mmol/L 136-145 POTASSIUM (test code=K) 4.4 mmol/L 3.5-5.1 CHLORIDE (test code=CL) 105.0 mmol/L 98-107 CARBON DIOXIDE (test code=CO2) 27.2 mmol/L 21-32 GLUCOSE (test code=GLU) 92 mg/dL 70-110 BLOOD UREA NITROGEN (test code=BUN) 13 mg/dL 7-18 GLOMERULAR FILTRATION RATE (test code=GFR) 75.1 >60 Unit of measure: mL/min/1.73 [id number] Range:Healthy Adults >90 mL/min/1.73 m2 For Chronic Kidney Disease: Stage II Mild Decrease in GFR 60-90 Stage III Moderate Decrease in GFR 30-59 Stage IV Severe Decrease in GFR 15-29 Stage V Kidney Failure <15 CREATININE (test code=CREAT) 0.78 mg/dL 0.55-1.30 TOTAL PROTEIN (test code=PROT) 7.4 g/dL 6.4-8.2 ALBUMIN (test code=ALB) 3.9 g/dL 3.4-5.0 GLOBULIN (test code=GLOB) 3.5 g/dL 2.2-4.2 ALBUMIN/GLOBULIN RATIO (test code=A/G) 1.1 0.7-2.0 CALCIUM (test code=CA) 9.3 mg/dL 8.2-10.1 BILIRUBIN TOTAL (test code=BILT) 0.36 mg/dL 0.2-1.00 SGOT/AST (test code=AST) 23.0 U/L 15-37 SGPT/ALT (test code=ALT) 31.0 U/L 12-78 Please note new normal range. ALKALINE PHOSPHATASE TOTAL (test code=ALKP) 150 U/L 46-116 PROTHROMBIN [id number] 16:54:00* Test Item Value Reference Range Comments PROTHROMBIN TIME PATIENT (test code=PTP) 11.6 secs 10.1-12.5 INTERNATIONAL NORMAL RATIO (test code=INR) 1.03 <2.0 RECOMMENDED THERAPEUTIC RANGE FOR ORAL ANTICOAGULANTTREATMENT: CONDITION INRProphylaxis of venous thrombosis in 2.0 - 3.0 high-risk medical or surgical patientsTreatment of venous thrombosis 2.0 - 3.0Prevention of embolism 2.0 - 3.0Prevention of recurrent embolism, or 3.0 - 4.5 patients with mechanical prosthetic intravascular valves IS PATIENT ON ANTICOAGULANTS ? NHas Lab been notified if Patient is on Heparin D rip? NOIf Yes, order CBC, OCCULT BLOOD, PT every other day NTHROMBOPLASTIN TIME [id number] 16:54:00* Test Item Value Reference Range Comments PTT ACTIVATED (test code=APTT) 28.6 secs 24.9-37.0 IS PATIENT ON ANTICOAGULANTS ? NHas Lab been notified if Patient is on Heparin D rip? NOIf Yes, order CBC, OCCULT BLOOD, PT every other day NURINALYSIS COMPLETE 2018-11-14 16:50:00* Test Item Value Reference Range Comments UA COLOR (test code=COLU) YELLOW YELLOW UA APPEARANCE (test code=APPU) SL CLOUDY CLEAR UA GLUCOSE DIPSTICK (test code=DGLUU) NEGATIVE NEGATIVE UA BILIRUBIN DIPSTICK (test code=BILU) NEGATIVE NEGATIVE UA KETONE DIPSTICK (test code=KETU) NEGATIVE mg/dL NEG UA SPECIFIC GRAVITY (test code=SGU) 1.025 1.003-1.035 UA BLOOD DIPSTICK (test code=CHANTEL) NEGATIVE NEGATIVE UA PH DIPSTICK (test code=MAIRA) 6.0 >6.5 UA PROTEIN DIPSTICK (test code=PROU) NEGATIVE mg/dL NEG UA UROBILINIOGEN DIPSTICK (test code=URO) 0.2 mg/dL NORM UA NITRITE DIPSTICK (test code=KANWAL) NEGATIVE NEG UA LEUKOCYTE ESTERASE DIPSTICK (test code=LEUU) NEGATIVE NEGATIVE UA WBC (test code=WBCU) <5 /HPF 0-2 UA RBC (test code=RBCU) 0-2 /HPF 0-2 UA EPITHELIAL CELLS (test code=EPIU) RARE /HPF 0-2 UA BACTERIA (test code=BACU) MODERATE /HPF NONE CBC W/AUTO [id number] 16:36:00* Test Item Value Reference Range Comments WHITE BLOOD CELL (test code=WBC) 8.2 K/mm3 5.8-11.0 RED BLOOD CELL (test code=RBC) 4.57 M/mm3 4.2-5.4 HEMOGLOBIN (test code=HGB) 13.7 g/dL 12-16 HEMATOCRIT (test code=HCT) 41.1 % 37-47 MEAN CELL VOLUME (test code=MCV) 90 fL 80-98 MEAN CELL HGB (test code=MCH) 30.0 pg 27-34 MEAN CELL HGB CONCENTRATION (test code=MCHC) 33.3 g/dL 30.8-34.1 RED CELL DISTRIBUTION WIDTH (test code=RDW) 12.4 % 11-16 PLT (test code=PLT) 346 K/mm3 130-400 MEAN PLATELET VOLUME (test code=MPV) 10.3 fL 8.9-12.1 NEUTROPHIL % (test code=NT%) 49.9 % 45-70 LYMPHOCYTE % (test code=LY%) 41.2 % 20-40 MONOCYTE % (test code=MO%) 7.0 % 3-10 EOSINOPHIL % (test code=EO%) 1.1 % 1-5 BASOPHIL % (test code=BA%) 0.7 % 0.0-1.1 NEUTROPHIL # (test code=NT#) 4.06 K/mm3 2.00-7.50 LYMPHOCYTE # (test code=LY#) 3.36 K/mm3 1.50-4.00 MONOCYTE # (test code=MO#) 0.57 K/mm3 0.2-0.8 EOSINOPHIL # (test code=EO#) 0.09 K/mm3 0.04-0.4 BASOPHIL # (test code=BA#) 0.06 K/mm3 0.02-0.10 MANUAL DIFF REQUIRED (test code=MDIFF) NO MANUAL DIFF NUCLEATED RED BLOOD CELL (test code=NRBC) 0 % 0-0
--- OUTSIDE RECORDS SUMMARY | 2019-05-04 07:56 | XMS REPORT | Summary of Care ---
Author Author [facility] - Health Organization [facility] - Health Address Unknown Phone Unavailable Care Team Providers Care Assistant Reading Teacher Name Role Phone Pcp, Patient Does Not Have A PCP Encounter Details Care Team Description Date Type Department Lynette Jarrett MD [address] [place] [phone] 01/30/2019 Patient Secure [facility]- [facility] [address] [place] [phone] Allergies Comments Active Allergy Reactions Severity Noted Date Iodine Hives 10/27/2013 Nitrofurantoin Hives 10/27/2013 Monohyd/M-Cryst "whelps and hives" Iodine And Iodide Other - See 10/27/2013 Containing Products comments Sulfa (Sulfonamide Hives 10/27/2013 Antibiotics) documented as of this encounter (statuses as of 02/03/2019) Medications End Date Status Medication Sig Dispensed [...] 9 EVERY 6 HOURS NEEDED*INS ONLY ALLOW 7 DAY/90 Active ezetimibe (ZETIA) 10 mg Take 1 tablet 30 tablet 4 08/30/201 tabletIndications: by mouth 9 Dyslipidemia daily. documented as of this encounter (statuses as of 02/03/2019) Active Problems Problem Noted Date Elevated blood pressure (not hypertension) 12/27/2015 Prediabetes 07/23/2014 Hypertriglyceridemia 07/23/2014 HLD (hyperlipidemia) 07/23/2014 Vitamin D deficiency 07/23/2014 Obesity 07/23/2014 Smoking addiction 07/23/2014 Hypothyroidism 04/02/2014 Metabolic syndrome X 04/02/2014 Thyroid disease 12/22/2013 documented as of this encounter (statuses as of 02/03/2019) Resolved Problems Problem Noted Date Resolved Date Essential hypertension 12/27/2015 12/27/2015 documented as of this encounter (statuses as of 02/03/2019) Social History Date Tobacco Use Types Packs/Day [...] of this encounter Last Filed Vital Signs Not on filedocumented in this encounter Plan of Treatment Care Team Description Date Type Specialty Lynette Jarrett MD [address] [place] [phone] 02/02/2020 Office Visit Endocrinology Diabetes & Metabolism Health Maintenance Due Date Last Done Comments [...] Results Not on filedocumented in this encounter Insurance Type Payer Benefit Subscriber ID Effective Phone Address Plan / Dates Group O AETNA AETNA O [id number] 2018-P resent documented as of this encounter
--- OUTSIDE RECORDS SUMMARY | 2019-05-04 07:56 | XMS REPORT | Summary of Care ---
Author Author [facility] - Health Organization [facility] - Health Address Unknown Phone Unavailable Care Team Providers Care Oracle Adf Consultant Name Role Phone Pcp, Patient Does Not Have A PCP Reason for Visit * Reason Comments Refill Request Encounter Details Care Team Description Date Type Department Lynette Jarrett MD [address] [place] [phone] Refill Request 01/27/2019 Refill [facility] [address] [place] [phone] Allergies Comments Active Allergy Reactions Severity Noted [...] EVERY 6 HOURS NEEDED*INS ONLY ALLOW 7 DAY/ Active ezetimibe (ZETIA) 10 mg Take 1 tablet 30 tablet 4 tabletIndications: by mouth 9 Dyslipidemia daily. 01/27/2019 Discontinued SYNTHROID 125 mcg tablet TAKE 1 TABLET 90 tablet 1 BY MOUTH 9 EVERY DAY IN THE EVENING documented as of this encounter (statuses as [...] Description Date Type Specialty Lynette Jarrett MD [address] [place] [phone] 02/02/2020 Office Visit Endocrinology Diabetes & Metabolism [...] Address Plan / Dates Group O AETNA AETCLEMENCIA O [id number] 2018-P resent documented as of this encounter
--- OUTSIDE RECORDS SUMMARY | 2019-05-04 07:56 | XMS REPORT | Summary of Care ---
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
--- OUTSIDE RECORDS SUMMARY | 2019-05-04 07:56 | XMS REPORT | Summary of Care ---
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 (Primary Dx); Prediabetes; Dyslipidemia; Goiter 01/27/2019 Office Visit [facility] [address] [place] [phone] Allergies Comments Active Allergy Reactions Severity Noted Date Iodine Hives 10/27/2013 Nitrofurantoin Hives 10/27/2013 Monohyd/M-Cryst "whelps and hives" Iodine And Iodide Other - See 10/27/2013 Containing Products comments Sulfa (Sulfonamide Hives 10/27/2013 Antibiotics) documented as of this encounter (statuses as of 02/02/2019) Medications End Date Status Medication Sig Dispensed [...] as of this encounter (statuses as of 02/02/2019) Active Problems Problem Noted Date Elevated blood pressure (not hypertension) 12/27/2015 Prediabetes 07/23/2014 Hypertriglyceridemia 07/23/2014 HLD (hyperlipidemia) 07/23/2014 Vitamin D deficiency 07/23/2014 Obesity 07/23/2014 Smoking addiction 07/23/2014 Hypothyroidism 04/02/2014 Metabolic syndrome X 04/02/2014 Thyroid disease 12/22/2013 documented as of this encounter (statuses as of 02/02/2019) Resolved Problems Problem Noted Date Resolved Date Essential hypertension 12/27/2015 12/27/2015 documented as of this encounter (statuses as of 02/02/2019) Social History Date Tobacco Use Types Packs/Day [...] documented in this encounter Progress Notes * Aimee Holden MD - 01/27/2019 11:00 AM CDT I saw and evaluated the patient on 01/27/[address] Jarrett's note as sharan henderson . I actively participated in the decision-making process. Please see th e fellow's note for additional details * Florina Enrique MA - 01/27/2019 11:00 [...] mg tablet 12/29/18 -- Doctor Unassigned , [place] TAKE 1 TABLET BY MOUTH EVERY 6 HOURS NEEDED*INS ONLY ALLOW meloxicam 7.5 mg tablet 12/15/18 -- Doctor Unassigned, [place] TAKE 1 TABLET BY MOUTH TWICE A DAY FOR INFLAMMATION SACCHAROMYCES BOULARDII (PROBIOTIC, S.BOULARDII, ORAL) -- -- Doctor Kay ssigned, [place] Take 1 tablet by mouth daily. SYNTHROID 125 mcg tablet 07/14/18 Medical History Past Medical History Date Comments Acid reflux [K21.9] Dyslipidemia [E78.5] Hypothyroidism [E03.9] Ptosis, right eyelid [H02.401] Medical History - Pertinent Negatives None Surgical History Past Surgical History Laterality Date Comments HYSTERECTOMY [[id number]] OPEN CARPAL TUNNEL RELEASE [[id number]] CHOLECYSTECTOMY [[id number]] Social History Category History Smoking Status Former [...] documented in this encounter Plan of Treatment Care Team Description Date Type Specialty Lynette Jarrett MD [address] [place] [phone] 02/02/2020 Office Visit Endocrinology Diabetes & [...] 01/27/2019 documented in this encounter Results * LIPID PANEL (25082)(TOTAL CHOLESTEROL, TRIGLYCERIDES, HDL) (01/27/2019 1:09 PM CDT) CHOL 198 120 - 200 mg/dL [facility] HDL 47 (L) >50 mg/dL [facility] HDLC RATIO 4.2 <=4.5 [facility] TRIG 243 (H) 30 - 170 mg/dL [facility] LDL CHOL 102 <=160 mg/dL [facility] VLDL 49 5 - 60 mg/dL [facility] Specimen Blood Performing Organization Address City/State/Zipcode Phone Number [facility] CLIA: [id number], [address] [place] [id number] [facility] * FREE T4 (01/27/2019 1:09 PM CDT) FREE T4 2.02 0.78 - 2.20 ng/dL: [facility] Specimen Blood Performing Organization Address City/State/Zipcode Phone Number [facility] CLIA: [id number], [address] [place] [id number] [facility] * THYROID STIMULATING HORMONE (01/27/2019 1:09 PM CDT) TSH 0.45 0.45 - 4.70 mIU/L [facility] Specimen Blood Performing Organization Address City/State/Zipcode Phone Number [facility] CLIA: [id number], [address] [place] [address] [facility] * POCT HEMOGLOBIN A1C TEST (01/27/2019) POCT HBA1C 5.6 4 - 6 % Specimen Blood - CAPILLARY documented in this encounter Visit Diagnoses Diagnosis 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
[2019-05-04 13:35] VITALS: BP 128/88
--- NOTE | 2019-05-04 20:31 | Operative Report ---
DATE OF PROCEDURE: 05/04/2019 SURGEON: Balaji Torrez MD PROCEDURE: Colonoscopy with polypectomy. INDICATIONS FOR COLONOSCOPY: Surveillance colonoscopy, personal history of colon polyps. MEDICATIONS: The patient was done under MAC, please see anesthesiologist's note. PROCEDURE IN DETAIL: With the patient in left lateral decubitus position, flexible fiberoptic Olympus colonoscope was inserted into the rectum with ease and advanced all the way to the cecum. There was a minute polyp noted in the cecum that was removed per cold snare. Two polyps in the ascending colon also were cold snared. A submucosal lesion approximately 8 mm in size suspicious for lipoma in the proximal transverse colon that was biopsied. One polyp in the transverse colon was removed per a hot snare polypectomy. The mucosa overlying the descending colon appeared to be within normal limits. There was a segmental mild patchy colitis noted in the sigmoid colon. Approximately, a 6 mm sessile polyp was removed per hot snare polypectomy in the sigmoid colon. Two polyps were hot biopsied in the rectum. The scope was then retroflexed into the distal rectum and small internal hemorrhoids were noted, none of which was actively bleeding. The scope was then straightened out, it was subsequently withdrawn. The patient tolerated the procedure well. IMPRESSION: 1. Cecal polyp x1, cold snared. 2. Ascending colon polyps x2, cold biopsied. 3. Rule out lipoma, proximal transverse colon. 4. Transverse colon polyp x1, hot snared. 5. Sigmoiditis, mild. 6. Sigmoid colon polyp, sessile, hot snared. 7. Rectal polyps x2, hot biopsied. 8. Internal hemorrhoids, none actively bleeding. PLAN: Follow up histology. Initiate high-fiber, low-fat diet. Initiate high-fiber supplement. The patient might benefit from a followup colonoscopy in 3 years. Balaji Torrez MD [facility] [place] /[id number]
== END | disposition home or self-care (01) ==
LOC: OR 07:53
PROVIDERS: ATTEND Internal Medicine Gastroenterology
DX: Z09 Encounter for follow-up examination after completed treatment for conditions other than malignant neoplasm (principal); D12.0 Benign neoplasm of cecum; D12.2 Benign neoplasm of ascending colon; D12.3 Benign neoplasm of transverse colon; D12.5 Benign neoplasm of sigmoid colon; K62.1 Rectal polyp; K52.9 Noninfective gastroenteritis and colitis, unspecified; K64.8 Other hemorrhoids; K21.9 Gastro-esophageal reflux disease without esophagitis; R03.0 Elevated blood-pressure reading, without diagnosis of hypertension; E03.9 Hypothyroidism, unspecified; Z88.2 Allergy status to sulfonamides; Z88.1 Allergy status to other antibiotic agents; Z91.041 Radiographic dye allergy status; Z01.810 Encounter for preprocedural cardiovascular examination; Z87.891 Personal history of nicotine dependence; Z68.31 Body mass index [BMI] 31.0-31.9, adult
CPT/HCPCS: 45380; 45384; 45385; 93005; J2704; 45378